=== PATIENT | male | born 1985 | race African-American/Black ===

== ENCOUNTER 2016-12-15 10:44 | Emergency (ER) | payer OTHER ==
[~2016-12-15 10:44] MED LIST: BENADRYL25 MG PO; COMPAZINE10 M PO; CYCLOBENZAPRINE10 M1 PO; DARVOCET-N 1001 TAB PO; DOXY-LEMMON100 MG PO; ERYTHROMYCIN3.5 GM OP; FLEXERIL10 MG PO; KEFLEX500 MG PO; LINDANE60 ML TP; MOTRIN800 MG PO; NAPHCON-A EYE D15 ML OP; NORCO 5/325 TAB1 TAB PO; PREDNISONE10 MG PO; SKELAXIN800 MG PO; ZITHROMAX1 G/PKT PO
[2016-12-15] MEDS ORDERED: IBUPROFEN800 M1 PO (12:10)
[2017-04-23] MEDS ORDERED: NO HOME MEDICATION XX (20:46)
[2017-04-23] MEDS ORDERED: NORCO 5/3251 TAB PO (20:56)
[2017-04-25] MEDS ORDERED: NORCO 5-325 TA1 EACH PO (15:06)
[2017-04-28] MEDS ORDERED: IBUPROFEN800 M1 PO (08:49)
== END 2016-12-15 12:37 ==
LOC: EDMED 10:44
PROC: 0HQGXZZ Repair Left Hand Skin, External Approach (ICD-10-PCS; principal; 2016-12-15)
DX: S61.012A Laceration without foreign body of left thumb without damage to nail, initial encounter (principal); W26.0XXA Contact with knife, initial encounter; Y92.69 Other specified industrial and construction area as the place of occurrence of the external cause; Y99.0 Civilian activity done for income or pay